=== PATIENT | male | born 1960 | race Caucasian/White ===

== ENCOUNTER 2018-06-27 23:50 | Emergency (ER) | payer OTHER ==
[2018-06-28 00:07] VITALS: PULSE 61; RESP 20; TEMP 97.8; O2SAT 99
[2018-06-28 00:44] VITALS: BP 178/85
== END 2018-06-28 00:55 | disposition home or self-care (01) | DRG 948 ==
LOC: ED 23:50
DX: R60.0 Localized edema (principal); Z98.890 Other specified postprocedural states; R20.0 Anesthesia of skin
CPT/HCPCS: 99282